=== PATIENT | female | born 1935 | race Caucasian/White ===

== ENCOUNTER 2021-12-28 08:00 | Outpatient (CLI) | payer MEDICARE | END 2021-12-28 23:59 | disposition home or self-care (01) | LOC: LAB.S 08:00 | PROVIDERS: ATTEND Physician Assistant | DX: R53.83 Other fatigue (principal) | CPT/HCPCS: 87077; 87086 ==

== ENCOUNTER 2022-01-26 08:00 | Outpatient (CLI) | payer MEDICARE | END 2022-01-26 23:59 | disposition home or self-care (01) | LOC: LAB 08:00 | PROVIDERS: ATTEND Registered Nurse | DX: R82.79 Other abnormal findings on microbiological examination of urine (principal); M54.50 Low back pain, unspecified; R53.83 Other fatigue; R39.15 Urgency of urination | CPT/HCPCS: 87086 ==

== ENCOUNTER 2022-01-26 12:54 | Outpatient (CLI) | payer MEDICARE ==
[2022-01-26 20:00] LABS: BASOPHILS # (AUTO) 0.1 10^3/uL (0.0-0.1); BASOPHILS % (AUTO) 0.4 %; EOSINOPHILS % (AUTO) 0.1 %; HCT - HEMATOCRIT 41.8 % (37.0-47.0); HGB - HEMOGLOBIN 14.1 g/dL (12.0-16.0); LYMPHOCYTES # (AUTO) 1.9 10^3/uL (1.5-3.5); LYMPHOCYTES % (AUTO) 13.1 %; MEAN CORPUSCULAR HEMOGLOBIN 31.3 pg (27.0-31.0); MEAN CORPUSCULAR HGB CONC 33.7 g/dL (32.0-36.0); MEAN CORPUSCULAR VOLUME 92.7 fL (81.0-99.0); MEAN PLATELET VOLUME 10.5 fL (7.9-10.8); MONOCYTES # (AUTO) 0.9 10^3/uL (0.0-1.0); MONOCYTES % (AUTO) 6.3 %; NEUTROPHILS # (AUTO) 11.4 10^3/uL (1.5-6.6); NEUTROPHILS % (AUTO) 79.7 %; PLT - PLATELET COUNT 248 10^3/uL (130-450); RED BLOOD COUNT 4.51 10^6/uL (4.20-5.40); RED CELL DISTRIBUTION WIDTH 13.2 % (12.0-15.0); WHITE BLOOD COUNT 14.2 x10^3/uL (4.8-10.8)
[2022-01-26 20:39] LABS: ALBUMIN 3.7 g/dL (3.2-5.5); ALBUMIN/GLOBULIN RATIO 1.1 (1.0-2.2); BILIRUBIN,TOTAL 1.4 mg/dL (0.2-1.0); CREATININE 0.9 mg/dL (0.4-1.0); POTASSIUM 3.4 mmol/L (3.5-5.0)
== END 2022-01-26 12:55 | disposition home or self-care (01) ==
LOC: LAB.S 12:54
PROVIDERS: ATTEND Internal Medicine Gastroenterology
DX: K75.4 Autoimmune hepatitis (principal); R79.89 Other specified abnormal findings of blood chemistry; K74.00 Hepatic fibrosis, unspecified
CPT/HCPCS: 36415; 80053; 82784; 85025

== ENCOUNTER 2022-01-26 14:25 | Outpatient (CLI) | payer MEDICARE ==
--- NOTE | 2022-01-26 15:56 | XRAY Report ---
PROCEDURE: Chest 2 View X-Ray INDICATIONS: ALTERED MENTAL STATUS, ACUTE COUGH TECHNIQUE: 2 views of the chest were acquired. COMPARISON: None FINDINGS: Surgical changes and devices: None. Lungs and pleura: Mildly prominent interstitium versus senescent lung markings. No consolidation or p leural effusions. Questionable nodule in the left midlung measuring 4 to 5 mm. Mediastinum: Mediastinal contours are normal. Heart size is normal. Bones and chest wall: No suspicious bony abnormalities. Soft tissues appear unremarkable. IMPRESSION: Mildly prominent interstitium could represent senescent lung markings versus atypical infection or ed huang. No pleural effusion. No dense consolidation. There is a questionable left midlung 4 to 5 mm nodule versus overlapping vascular structures. Reviewed by: Robi Blackwell MD on 01/26/2022 3:55 PM PST Approved by: Robi Blackwell MD on 01/26/2022 3:55 PM PST Station ID: [id number]
== END 2022-01-26 14:26 | disposition home or self-care (01) ==
LOC: DI.S 14:25
PROVIDERS: ATTEND Registered Nurse
DX: R41.82 Altered mental status, unspecified (principal); R05.1 Acute cough; R82.79 Other abnormal findings on microbiological examination of urine; M54.50 Low back pain, unspecified; R53.83 Other fatigue; R39.15 Urgency of urination; K75.4 Autoimmune hepatitis; R79.89 Other specified abnormal findings of blood chemistry; K74.00 Hepatic fibrosis, unspecified
CPT/HCPCS: 36415; 80053; 82784; 85025; 87086

== ENCOUNTER 2022-02-15 09:17 | Outpatient (CLI) | payer MEDICARE ==
[2022-02-15 10:05] LABS: BASOPHILS # (AUTO) 0.1 10^3/uL (0.0-0.1); BASOPHILS % (AUTO) 0.9 %; EOSINOPHILS # (AUTO) 0.1 10^3/uL (0.0-0.7); EOSINOPHILS % (AUTO) 0.7 %; HCT - HEMATOCRIT 42.3 % (37.0-47.0); HGB - HEMOGLOBIN 13.8 g/dL (12.0-16.0); LYMPHOCYTES # (AUTO) 3.2 10^3/uL (1.5-3.5); MEAN CORPUSCULAR HEMOGLOBIN 30.7 pg (27.0-31.0); MEAN CORPUSCULAR HGB CONC 32.6 g/dL (32.0-36.0); MEAN PLATELET VOLUME 9.5 fL (7.9-10.8); MONOCYTES # (AUTO) 0.7 10^3/uL (0.0-1.0); MONOCYTES % (AUTO) 8.1 %; NEUTROPHILS # (AUTO) 4.9 10^3/uL (1.5-6.6); PLT - PLATELET COUNT 248 10^3/uL (130-450)
[2022-02-15 10:13] LABS: ALBUMIN/GLOBULIN RATIO 1.4 (1.0-2.2); BILIRUBIN,TOTAL 0.8 mg/dL (0.2-1.0); CALCIUM 9.1 mg/dL (8.5-10.3); CREATININE 0.8 mg/dL (0.4-1.0); POTASSIUM 3.5 mmol/L (3.5-5.0); TOTAL PROTEIN 6.9 g/dL (6.7-8.2)
== END 2022-02-15 09:18 | disposition home or self-care (01) ==
LOC: LAB 09:17
PROVIDERS: ATTEND Internal Medicine Gastroenterology
DX: K75.4 Autoimmune hepatitis (principal); K74.00 Hepatic fibrosis, unspecified; I63.9 Cerebral infarction, unspecified
CPT/HCPCS: 36415; 80053; 85025

== ENCOUNTER 2022-02-15 09:18 | Outpatient (CLI) | payer MEDICARE ==
--- NOTE | 2022-02-15 13:05 | Ultrasound Report ---
PROCEDURE: Abdomen Limited INDICATIONS: LIVER FIBROSIS TECHNIQUE: Real-time focused scanning was performed of the abdomen, with image documentation. COMPARISON: None. FINDINGS: Liver length of 11.6 cm. Liver echotexture appears coarsened and heterogeneous. No suspicious focal l iver lesion identified sonographically. No gallstones, gallbladder wall thickening, or sonographic Mu rphy sign. No biliary ductal dilation demonstrated. Extra hepatic duct measures 5 mm. Visualized panc reas is unremarkable. Right renal length of 9.7 cm, no right hydronephrosis or evidence of right neph rolithiasis. Subcentimeter right renal sinus cyst, no suspicious features visualized. Main portal vei n is patent with antegrade flow. IMPRESSION: 1. Liver echotexture is coarsened and heterogeneous suggestive of chronic liver disease. No suspiciou s focal liver lesion identified sonographically. 2. No biliary ductal dilation demonstrated. Reviewed by: Faisal Whittington MD on 02/15/2022 1:04 PM PST Approved by: Faisal Whittington MD on 02/15/2022 1:04 PM PST Station ID: [id number]
== END 2022-02-15 09:19 | disposition home or self-care (01) ==
LOC: DI 09:18
PROVIDERS: ATTEND Internal Medicine Gastroenterology
DX: K75.4 Autoimmune hepatitis (principal); K74.00 Hepatic fibrosis, unspecified; I63.9 Cerebral infarction, unspecified
CPT/HCPCS: 36415; 80053; 85025

== ENCOUNTER 2022-04-05 14:12 | Outpatient (CLI) | payer MEDICARE ==
[2022-04-05 15:17] VITALS: BP 122/68
--- NOTE | 2022-04-05 15:17 | SLEEP CARE CONSULTATION ---
Information from patient questionnaire entered by Joseph Lopez. I have reviewed and concur with the information entered by Joseph Lopez. This document represents the service I personally performed and the decisions made by me, Anya Turner ARNP. History of Present Illness Service Date and Time: 04/05/2022 1412 Reason for Visit: New patient Accompanied by: Daughter Chief Complaint: reports: Insomnia, Unrefreshed sleep, Snoring, Observed pauses in breathing, Fatigue, Frequent awakenings at night Date of Onset: DONT KNOW Usual bedtime: 10PM Time it takes to fall asleep: AT LEAST 1 HR; used to staying up til 1-2 AM Snores at night: Yes Observed to quit breathing while asleep: No Number of times waking at night: ONCE OR TWICE Reasons for waking at night: reports: Snoring, Bathroom, Other (NOISE) Toss, Turn, or Twitch while sleeping: No Recalls having dreams: Yes Usually gets out of bed at: 930-10AM Feels refreshed in the morning: No Morning headache: No Sleepy or fatigued during the day: Yes Ever fallen asleep while driving: No (does not drive at this time) Takes day naps: No Dreams during day naps: No Prior sleep studies: No Additional HPI information: I had the pleasure of seeing KIA RIOS today regarding the possibility of her having a sleep disorder. Her current complaints are fatigue, frequent night awakenings, observed pauses in breathing, snoring and unrefreshed sleep. She is accompanied by her daughter who helps with history. She had a stroke in 10/2021 and is currently staying with her daughter who has heard her snoring and is making "gasping" sounds at night. She has days she wakes up feeling very tired. If she is tired she has more difficulty with her aphasia, etc during the day. 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 Patient is / and lives in [place]. Have you smoked in the past 12 months: No Alcohol use: No Caffeine use: Yes Caffeine amount and frequency: 1 CUP COFFEE DAILY Family History Family history of sleep disordered breathing: No Allergies and Home Medications Known drug allergies: No Drug allergies reviewed: Yes (NKDA) Home medication list reviewed: Yes (see list in EMR) Review of Systems Cardiovascular: reports: leg or foot swelling. denies: high blood pressure Gastrointestinal: reports: heartburn. denies: difficulty swallowing Neurological: reports: speech dysfunction (due to the stroke in 10/2021) Ear/Nose/Throat: denies: tonsillectomy Endocrine: reports: too hot or cold Physical Exam Vital signs obtained and entered by: JOSEPH Dean MA Blood Pressure: 122/68 (LEFT ARM) Cuff size: regular Heart Rate: 83 O2 Saturation: 96 Height: 5 ft 4 in Weight: 129 lb 9.6 oz Body Mass Index: 22.2 BMI Classification: Normal Neck circumference: 14 Mouth and throat: narrow oropharynx Soft palate: long Hard palate: normal Uvula: normal Uvula visualization: 25% Mallampati Class III Tongue: enlarged in size with teeth rivera on lateral edges Tonsils: small Neck: normal w/o lymphadenopathy or thyromegaly Heart: regular rate and rhythm Lungs: clear bilaterally Impression and Plan 1. Suspected Obstructive Sleep Apnea-Hypopnea Syndrome, as suggested by a history of loud and irregular snoring, gasping or choking in sleep, frequent awakening during the night, unrefreshed sleep and cognitive impairment. Patient has history of stroke in October 2021 with her only deficit being some aphasia . Narrow oropharynx and obesity are common predisposing factors for obstructive sleep apnea-hypopnea syndrome. I recommend proceeding to polysomnography to confirm the diagnosis and to assess severity. If the patient has significant sleep disordered breathing, a manual CPAP titration study will also be performed to find the optimal treatment pressure. I informed the patient of what the sleep studies involve and after some discussion, obtained agreement to proceed. The pathophysiology of obstructive sleep apnea-hypopnea syndrome was discussed with the patient and health risks of cardiovascular and cerebrovascular disease if not treated. Risks of drowsy driving discussed in detail and patient advised to avoid long distance driving and to tack puller at the first sign of drowsiness. Patient agreed to plan. * Schedule polysomnography * Avoid long distance driving or driving when feeling sleepy. * Avoid alcohol, sedative and muscle relaxant around bedtime. * Review instructions provided by trained office staff on how to prepare for the sleep study. * Return for follow-up after sleep study completed. Visit Type: In Office Other Participants: Child (Daughter) Time Spent with Patient (minutes): 34 Provider Statement: I spent 100% of the Face to Face Visit with the patient with greater than 50% spent counseling the patient and coordination of care.
== END 2022-04-05 14:13 | disposition home or self-care (01) ==
LOC: SC 14:12
PROVIDERS: ATTEND Nurse Practitioner Family
DX: G47.8 Other sleep disorders (principal); R41.89 Other symptoms and signs involving cognitive functions and awareness; R06.83 Snoring
CPT/HCPCS: 99203; G0463; 99212

== ENCOUNTER 2022-04-07 11:26 | Outpatient (CLI) | payer MEDICARE ==
[2022-04-07 14:24] LABS: BASOPHILS # (AUTO) 0.1 10^3/uL (0.0-0.1); BASOPHILS % (AUTO) 0.7 %; EOSINOPHILS # (AUTO) 0.1 10^3/uL (0.0-0.7); EOSINOPHILS % (AUTO) 1.6 %; HGB - HEMOGLOBIN 13.3 g/dL (12.0-16.0); LYMPHOCYTES # (AUTO) 2.5 10^3/uL (1.5-3.5); LYMPHOCYTES % (AUTO) 31.1 %; MEAN CORPUSCULAR HEMOGLOBIN 29.6 pg (27.0-31.0); MEAN CORPUSCULAR HGB CONC 32.4 g/dL (32.0-36.0); MEAN CORPUSCULAR VOLUME 91.1 fL (81.0-99.0); MEAN PLATELET VOLUME 10.3 fL (7.9-10.8); MONOCYTES # (AUTO) 0.7 10^3/uL (0.0-1.0); MONOCYTES % (AUTO) 8.8 %; NEUTROPHILS # (AUTO) 4.7 10^3/uL (1.5-6.6); NEUTROPHILS % (AUTO) 57.6 %; PLT - PLATELET COUNT 209 10^3/uL (130-450); RED CELL DISTRIBUTION WIDTH 13.1 % (12.0-15.0); WHITE BLOOD COUNT 8.1 x10^3/uL (4.8-10.8)
[2022-04-07 15:03] LABS: ALBUMIN 4.1 g/dL (3.2-5.5); ALBUMIN/GLOBULIN RATIO 1.6 (1.0-2.2); CALCIUM 9.3 mg/dL (8.5-10.3); CREATININE 0.8 mg/dL (0.4-1.0); POTASSIUM 3.9 mmol/L (3.5-5.0); TOTAL PROTEIN 6.7 g/dL (6.7-8.2)
[2022-04-07 15:18] LABS: THYROID STIMULATING HORMONE 5.68 uIU/mL (0.34-5.60)
[2022-04-07 16:40] LABS: FREE T4 (FREE THYROXINE) 0.98 ng/dL (0.58-1.64)
== END 2022-04-07 11:27 | disposition home or self-care (01) ==
LOC: LAB.S 11:26
PROVIDERS: ATTEND Internal Medicine Gastroenterology
DX: K75.4 Autoimmune hepatitis (principal); K74.00 Hepatic fibrosis, unspecified; I63.9 Cerebral infarction, unspecified; Z13.29 Encounter for screening for other suspected endocrine disorder
CPT/HCPCS: 36415; 80053; 84439; 84443; 85025

== ENCOUNTER 2022-05-26 19:45 | Outpatient (CLI) | payer MEDICARE | END 2022-05-26 19:46 | disposition home or self-care (01) | LOC: SC 19:45 | PROVIDERS: ATTEND Nurse Practitioner Family | DX: G47.33 Obstructive sleep apnea (adult) (pediatric) (principal); G47.61 Periodic limb movement disorder | CPT/HCPCS: 95810 ==

== ENCOUNTER 2022-05-31 16:13 | Outpatient (CLI) | payer MEDICARE ==
--- NOTE | 2022-05-31 16:13 | SLEEP CARE CONSULTATION ---
Information from patient questionnaire entered by Mari Lopez. I have reviewed and concur with the information entered by Mari Lopez. This document represents the service I personally performed and the decisions made by , Anya Turner ARNP. History of Present Illness Service Date and Time: 05/31/2022 1540 Accompanied by: children Initial [place] Sleepiness Scale score: 3 Current [place] Sleepiness Scale score: 3 Additional HPI information: KIA RIOS returns via telehealth with daughter and son for follow up and results of the recently performed polysomnography. I explained the pathophysiology behind obstructive sleep apnea. We then spent quite a bit of time discussing different treatment options. For mild obstructive sleep apnea, surgery and oral appliance are alternatives to nasal CP AP therapy but in moderate or severe cases, nasal CPAP is the most effective and reliable treatment. Because apnea is primarily in supine position, then positional management therapy could be effective. Methods discussed such as positioning with pillows to prevent supine sleep. I reviewed the impact of weight changes on sleep apnea and strongly recommended losing weight. Patient does not drink alcohol. Patient does not drive. Sleep Study - Results Type of Sleep Study: Polysomnography (COMPLETED 05/26/22) Prior sleep studies: No Polysomnography/Home Sleep Study results: IMPRESSION: The quality of the study is good. The patient had slightly reduced sleep efficiency due to a few awakenings during the night. The sleep architecture was abnormal for sleep fragmentation and reduced amount of time spent in REM sleep. Respiratory monitoring showed mild obstructive sleep apnea-hypopnea (AHI = 9.0) associated with frequent arousals, oxyhemoglobin desaturation and mild hypoxia (lázaro oxygen saturation of 87%). The respiratory events occurred almost exclusively during supine sleep (supine AHI = 43.1; non-supine = 1.38). Snore was moderate in intensity. There was mild periodic leg movement of sleep not contributing to the sleep fragmentation. Cardiac rhythm was normal sinus rhythm without significant arrhythmia. No abnormal behavior (parasomnia) observed during the night. Allergies and Home Medications Known drug allergies: No Drug allergies reviewed: Yes Home medication list reviewed: Yes (no changes) Allergy and home medication list: Allergies No Known Drug Allergies Allergy (Verified 05/31/22 14:55) Review of Systems Review of systems same as previous: Yes (no changes) Physical Exam Vital signs obtained and entered by: Anya Oglesby NP (per pt) Height: 5 ft 4 in Weight: 129 lb 14.4 oz (per pt) Body Mass Index: 22.3 BMI Classification: Normal Impression and Plan 1. Obstructive Sleep Apnea-Hypopnea Syndrome, mild, with lowest oxygen saturation of 87%. Obviously this is the cause of the patients symptoms of unrefreshed sleep, and excessive daytime sleepiness. Positive pressure therapy could benefit cerebrovascular disease. Patient desires to try positional therapy. Since patients apnea is primarily in supine position, this could control her sleep apnea. Follow up is scheduled for one month to check effectiveness and determine if change in therapy is needed. 2. Periodic limb movement, mild, that did not fragment patients sleep. Periodic limb movement of sleep (PLMS) is characterized by episodes of repetitive limb movements that occur during sleep and usually involve the lower limbs. The etiol ogy is unknown. Caffeine can aggravate PLMS and should be avoided. Sleep hygiene methods can also improve sleep as well as lifestyle changes such as regular exercise. Patient was advised that no treatment is needed at this time. If symptoms increase, then further evaluation is indicated. * Positional therapy * Maintain healthy weight. * Avoid supine sleep * Return in about one month. I will assess response to therapy at that time. Counseling Topics: Sleeping position, Weight control Visit Type: Telehealth Phone Time Spent with Patient (minutes): 25 Provider Statement: I spent 100% of the Telehealth Phone Call with the patient with greater than 50% spent counseling the patient and coordination of care.
== END 2022-05-31 16:14 | disposition home or self-care (01) ==
LOC: SC 16:13
PROVIDERS: ATTEND Nurse Practitioner Family
DX: G47.33 Obstructive sleep apnea (adult) (pediatric) (principal); G47.61 Periodic limb movement disorder